=== PATIENT | female | born 1950 | race Caucasian/White ===

== ENCOUNTER 2019-07-19 00:36 | Day surgery (SDC) | payer OTHER, MEDICARE, SELFPAY ==
[2019-07-16 10:31] VITALS: BMI 44.6
[2019-07-19 10:03] VITALS: BP 154/115; PULSE 78; RESP 18; TEMP 36.9; O2SAT 97
[2019-07-19] MEDS: LACTATED RINGERS 1,000 ML 150 ML IV CONT (10:06)
--- NOTE | 2019-07-19 10:39 | WPDGICN ---
Assessment and Plan Additional Plan This is a 68-year-old white female patient seen in evaluation at the request of Jossy Dave. Patient presents for GI endoscopy. Patient complains of 3 week to 4 week history of right upper quadrant pain pain spreads across her abdomen to the epigastric area at the rib margin. She states pain will worsen after eating. She complains of bloating after meals. She has constipation alternating with diarrhea. She describes the pain is an ache in somewhat tender on palpation. She reports that her bowel habits are regular. No bleeding as described. Past medical history is significant for cholecystectomy 12 years ago. She has been treated for diabetes, GE reflux disease, previous colonoscopy 2016 revealed colon polyps. Current medications include sertraline, Divigill, pantoprazole, She has allergies to penicillins, sulfa. Family history noncontributory. Physical exam reveals her to be uncomfortable at rest. HEENT exam unremarkable. She is anicteric. lungs are clear to auscultation and percussion. Heart is without murmur or extra sounds. She is tender at the right lateral rib cage. Abdominal exam is obese. Bowel sounds are present soft nontender with no organomegaly. Laboratory tests reveal CT scan with post cholecystectomy common duct measuring 1.3cm, LFTs are normal. CBC is normal. Impression 1. Right upper quadrant pain 2. Epigastric pain 3. Change in bowel habits. 4. History of colon polyps. 5. Irritable bowel syndrome. This is likely explanation for most of her symptoms. 6. Obesity. 7. Musculoskeletal pain. Appears to account for her right-sided pain. Plan is for FiberCon 2 tabs p.o. b.i.d.. 2. Prilosec 20 mg p.o. daily. As a trial. 3. Both colonoscopy an EGD to assess for etiology of her discomfort. GI Consult Note Consult date/time: 07/19/19 10:39 HPI: Swapna Quiroz is a 68 year old female Meds Home Medications and Allergies Home Medications Medication Instructions Recorded Confirmed Type calcium polycarbophil [FiberCon] 1,250 mg PO BID 07/16/19 07/16/19 History estradiol [Divigel] 1 mg TOPICAL DAILY 07/16/19 07/16/19 History omeprazole 20 mg PO DAILY 07/16/19 07/16/19 History sertraline 100 mg PO DAILY 07/16/19 07/16/19 History Allergies Allergy/AdvReac Type Severity Reaction Status Date / Time imipenem Allergy Intermediate Hives Verified 07/19/19 10:02 Penicillins Allergy Intermediate Hives Verified 07/19/19 10:02 Sulfa (Sulfonamide Allergy Intermediate Hives Verified 07/19/19 10:02 Antibiotics) sulfamethoxazole Allergy Intermediate Hives Verified 07/19/19 10:02 [From Bactrim] trimethoprim [From Bactrim] Allergy Intermediate Hives Verified 07/19/19 10:02 Vital Signs Vital Signs - 24 hr 07/19/19 10:03 Temperature 36.9 C Pulse Rate 78 Respiratory Rate 18 Blood Pressure 154/115 H Pulse Oximetry 97
--- NOTE | 2019-07-19 10:47 | P.PNAN_ITS ---
Anes - Initial Pre Proc Eval Procedure: Operation Date: 07/19/19 10:30 Proposed Procedures p Esophagogastroduodenoscopy & Colonoscopy - Quintin Baires MD Date/Time: 07/19/19 10:47 Surgeon: Quintin Baires MD Pre Op Diagnosis: Change In Bowel Habits/ Epigastric Pain Patient Data Age: 68 Gender: F Height: 5 ft 4 in Weight: 120 kg Last Vital Signs Temp 98.4 F 07/19/19 10:03 Pulse 78 07/19/19 10:03 Resp 18 07/19/19 10:03 BP 154/115 H 07/19/19 10:03 Pulse Ox 97 07/19/19 10:03 Allergies Allergy/AdvReac Type Severity Reaction Status Date / Time imipenem Allergy Intermediate Hives Verified 07/19/19 10:02 Penicillins Allergy Intermediate Hives Verified 07/19/19 10:02 Sulfa (Sulfonamide Allergy Intermediate Hives Verified 07/19/19 10:02 Antibiotics) sulfamethoxazole Allergy Intermediate Hives Verified 07/19/19 10:02 [From Bactrim] trimethoprim [From Bactrim] Allergy Intermediate Hives Verified 07/19/19 10:02 Home Medications Medication Instructions Recorded Confirmed Type calcium polycarbophil [FiberCon] 1,250 mg PO BID 07/16/19 07/16/19 History estradiol [Divigel] 1 mg TOPICAL DAILY 07/16/19 07/16/19 History omeprazole 20 mg PO DAILY 07/16/19 07/16/19 History sertraline 100 mg PO DAILY 07/16/19 07/16/19 History Patient hx anesthesia problems: none Family hx anesthesia problems: none [facility] Past Medical History Medical History (Updated 07/19/19 @ 10:47 by Nicolas Louis MD) Anxiety Arthritis GERD (gastroesophageal reflux disease) Irregular heart beat Morbid obesity LUCIE (obstructive sleep apnea) Anes - Eval Final PreProcedure Day of Procedure 07/19/19 10:47 Patient weight: morbidly obese Heart: regular rate and rhythm Lungs: clear to auscultation Airway: Mallampati scale class III Neurological: alert and oriented Last oral intake: >/= 8 hours ASA classification: IV Emergent: no Anesthetic plan: proceed Anesthesia type and monitoring: general GIVS and standard monitoring Informed Consent: The patient's anesthetic plan and its attendant risks and benefits were discussed with the patient/family/POA. Questions were solicited and answers provided to the satisfaction of the patient/family/POA.
[2019-07-19] MEDS: BENZOCAINE (*SP) 60 ML SPRAY CAN (HURRICAINE) 1 SPRAY MUCOUS MEM (10:55)
[2019-07-19 11:24] VITALS: BP 112/60; PULSE 81; RESP 18; O2SAT 100
[2019-07-19 11:34] VITALS: BP 125/68; PULSE 73; RESP 18; O2SAT 100
[2019-07-19 11:54] VITALS: BP 160/70; PULSE 66; RESP 18; O2SAT 100
== END 2019-07-19 12:17 | disposition home or self-care (01) ==
PROVIDERS: PCP Family Medicine; Visit Provider Internal Medicine Gastroenterology
PROC: 0DJ08ZZ Inspection of Upper Intestinal Tract, Via Natural or Artificial Opening Endoscopic (ICD-10-PCS; CPT 43235; principal; 2019-07-19 10:30)
DX: Z12.11 Encounter for screening for malignant neoplasm of colon (principal); D12.5 Benign neoplasm of sigmoid colon; K57.30 Diverticulosis of large intestine without perforation or abscess without bleeding; K64.8 Other hemorrhoids; R10.84 Generalized abdominal pain; R10.11 Right upper quadrant pain; R10.13 Epigastric pain; K21.9 Gastro-esophageal reflux disease without esophagitis; E11.9 Type 2 diabetes mellitus without complications; G47.33 Obstructive sleep apnea (adult) (pediatric); F41.9 Anxiety disorder, unspecified; E66.01 Morbid (severe) obesity due to excess calories; Z68.42 Body mass index [BMI] 45.0-49.9, adult
CPT/HCPCS: 45385; 43239; 88305; J2704; J7120